=== PATIENT | male | born 1995 | race Two or more races ===

== ENCOUNTER 2025-05-06 13:40 | Emergency (ER) | payer SELFPAY ==
[2025-05-06 13:41] VITALS: BMI 25.0
[2025-05-06 14:56] VITALS: BP 148/84; PULSE 102; RESP 18; TEMP 36.8; O2SAT 98
--- NOTE | 2025-05-06 14:56 | EDNOTE_ITS ---
ED Ear RME/HPI General Chief complaint: Ear Stated complaint: L EAR PAIN X1 WEEK; DECREASED HEARING TO L EAR Time Seen by Provider: 05/06/25 14:01 Source: patient Arrival date/time: 05/06/25 13:40 Mode of arrival: ambulatory Limitations: no limitations RME / HPI RME / HPI Narrative: This patient is a 29-year-old male who arrives to the ED today for evaluation of left ear pain that began yesterday morning and has worsened significantly over the past day. Patient arrives with significant pain to the left ear. Patient denies any hearing loss. Patient states that symptoms came on to have just worsened. Patient denies any fever nausea or vomiting. Related Data Previous Rx's ?Medication ?Instructions ?Recorded amoxicillin 875 mg-potassium 1 tab PO BID 7 days #14 t abs 05/06/25 clavulanate 125 mg tablet hydrocodone 5 mg-acetaminophen 325 1 tab PO Q6H PRN pa in #10 tabs 05/06/25 mg tablet ibuprofen 800 mg tablet (IBU) 800 mg PO Q8H PRN pain # 20 tabs 05/06/25 [id number]-ucatgxphu-yjzpbxvvd 3.5 4 drp otic (ear) Q8H 7 days #2.5 mL 05/06/25 mg-10,000 unit/mL-1 % ear drops,susp Allergies Allergy/AdvReac Type Severity Reaction Status Date / Time No Known Allergies Allergy Verified 05/06/25 13:44 Review of Systems Review of Systems Systems Reviewed: All systems reviewed, normal except as documented Past Medical History Social History SMOKING STATUS: Heavy (> 1 pack/day) ED Exam Narrative Physical exam: Patient appears to be in moderate pain due to left sided ear pain at time of evaluation. General Limitations: Present no limitations General appearance: Present alert and in distress (Moderate distress due to left-sided ear pain concerns.) Head Head exam: Present atraumatic Eye Eye exam: Present normal appearance, PERRL and EOMI ENT ENT exam: Present normal oropharynx, mucous membranes moist and other (Left ear canal reveals moderate edema and erythema with moderate debris noted. TM is slightly bulging with a red peripheral ring. No perforation noted.) Neck Neck exam: Present normal inspection, full ROM and trachea midline Chest Chest inspection: Present normal inspection and symmetric chest wall rise Respiratory Respiratory exam: Present normal lung sounds bilaterally Cardiovascular Cardiovascular exam: Present regular rate, normal rhythm and normal heart sounds Abdominal Exam Abdominal exam: Present soft and normal bowel sounds Extremities Exam Extremities exam: Present normal inspection and full ROM Back Exam Back exam: Present normal inspection and full ROM Neurological Exam Neurological exam: Present alert, oriented X3 and CN II-XII intact Psychiatric Psychiatric exam: Present normal affect and normal mood Skin Skin exam: Present warm, dry, intact and normal color Course Quality Measures none Orders Category Date Time Status HYDROcodone*/APAP 5/325 [[place] 5/325] Med 05/06/25 14:55 Once 1 tab PO X1 ONE Ketorolac Inj [Toradol Inj] Med 05/06/25 14:55 Once 30 mg IM X1 ONE As noted above Ear MDM Narrative MDM Narrative:: This patient appears to be suffering from an otitis externa and otitis media. Patient will be given medication to address both concerns. Pain medication as needed. Patient data External records reviewed:: [facility] previous records Clinical information provided by:: patient Social determinants that could affect healthcare access:: none Patient has the following chronic illnesses:: None How is presenting disease/condition affected by chronic disease/condition?: no chronic disease Evaluation data The following diagnostics were reviewed and interpreted by me:: other (specify) (None) Lab and/or radiology exams considered but not ordered:: None Interpretation Summary: None Medications / Prescriptions Medications or Prescriptions considered but not ordered:: None Medication administrations:: Medication Administration History Hydrocodone Bitart/Acetaminophen (Hydrocodone/Apap 5/325 Tablet) 1 tab PO X1 ONE Stop: 05/06/25 14:56 Ketorolac Tromethamine (Ketorolac Inj 30 Mg/Ml Vial) 30 mg IM X1 ONE Stop: 05/06/25 14:56 As noted above Consultations Consultation(s) initiated? (list below): No Diagnosis Ear Differential Diagnosis: otitis externa and otitis media Most likely diagnosis given after review of the tests above:: Otitis externa and otitis media Admission Indicated Admission indicated?: not indicated Explain why admission is indicated or not indicated:: Unwarranted Admission Request Was there a request for admission?: No Disposition Plan Disposition Plan: Discharge Discharge Attestation Discharge Attestation: The patient and all family members were given an opportunity to ask questions and understood the discharge instructions. Discharge instructions specifically effects, indications for sooner follow up or return to the emergency department, and the expected course of current diagnosis. Patient condition: Stable Discharge Plan Plan Patient Disposition: HOME (Self Care) Prescriptions/Referrals Prescriptions/Med Rec: New kvkktpac-rpjoakkch-NO 3.5-10,000-1 mg/mL-unit/mL-% drops,suspension 4 drp otic (ear) Q8H 7 Days Qty: 2.5 0RF ibuprofen [IBU] 800 mg tablet 800 mg PO Q8H PRN (Reason: pain) Qty: 20 0RF hydrocodone-acetaminophen 5-325 mg tablet 1 tab PO Q6H MDD 4 tabs PRN (Reason: pain) Qty: 10 0RF amoxicillin-pot clavulanate 875-125 mg tablet 1 tab PO BID 7 Days Qty: 14 0RF Problem List Clinical Impression: Otitis externa, Otitis media Patient/Caregiver Discharge Instructions Education Materials: ED Otitis Media Antibiotic ..., ED External Ear Infection (Adult) Additional Instructions: Advised patient utilize oral and eardrop antibiotics as directed and to completion. Pain medication as needed for Print Language: Swedish Stand Alone Forms: [facility] Award Info., Patient Portal Info Letter
[2025-05-06] MEDS: KETOROLAC INJ 30 MG/ML VIAL IM (15:15)
[2025-05-06] MEDS: HYDROcodone/APAP 5/325 TABLET 1 TAB PO (15:15)
== END 2025-05-06 15:34 | disposition home or self-care (01) ==
LOC: SERX 15:15
PROVIDERS: Emergency Provider Emergency Medicine
DX: H60.92 Unspecified otitis externa, left ear (principal); H66.92 Otitis media, unspecified, left ear
CPT/HCPCS: 96372; 99282; J1885; A9270